=== PATIENT | female | born 1930 | race Caucasian/White ===

== ENCOUNTER 2017-03-20 08:43 | Day surgery (SDC) | payer MEDICARE, OTHER ==
--- NOTE | ~2017-03-20 | EGD ---
EGD REPORT [facility] [address] [id number] NAME: MAK VALDEZ : [birth year] STATUS : REG [facility] PAT#: [id number] AGE: 86 ADM/REG DATE : 03/20/17 MR#: [id number] REPORT SERV DATE: 03/20/17 DICTATED BY: GRACIA CHRISTENSEN DATE: 03/20/17 REPORT STATUS : Draft TRANSCRIBED BY: [facility] DATE: 03/20/17 Endoscopy Center Patient Name: Mak Valdez Date of : 1930 Attending MD: GRACIA CHRISTENSEN MD Procedure Date No Time: 03/20/2017 Procedure: Upper GI endoscopy Indications: Acute post hemorrhagic anemia, Heme positive stool Referring MD: Xu Alaniz Medicines: Monitored Anesthesia Care Complications: No immediate complications. Procedure: Pre-Anesthesia Assessment: - ASA Grade Assessment: III - A patient with severe systemic disease. After obtaining informed consent, the endoscope was passed under direct vision. Throughout the procedure, the patient's blood pressure, pulse, and oxygen saturations were monitored continuously. The GIF [id number] was introduced through the mouth, and advanced to the second part of duodenum. The upper GI endoscopy was accomplished without difficulty. The patient tolerated the procedure well. Findings: The examined esophagus was normal. One non-bleeding gastric ulcer was found in the gastric antrum. The lesion was 8 mm in largest dimension. Biopsies were taken with a cold forceps for histology. The cardia and gastric fundus were normal on retroflexion. The duodenal bulb and 2nd part of the duodenum were normal. Biopsies were taken with a cold forceps for histology. A small diverticulum was found in the second part of the duodenum. Impression: - Normal esophagus. - Gastric ulcer with clean base. Biopsied. - Normal duodenal bulb and 2nd part of the duodenum. Biopsied. Recommendation: - Patient has a contact number available for emergencies. The signs and symptoms of potential delayed complications were discussed with the patient. Return to normal activities tomorrow. Written discharge instructions were provided to the patient. - Regular diet. - Continue present medications. EGD REPORT [address] [address] NAME: MAK VALDEZ : [birth year] STATUS : REG [facility] PAT#: [id number] AGE: 86 ADM/REG DATE : 03/20/17 MR#: [id number] REPORT SERV DATE: 03/20/17 DICTATED BY: GRACIA CHRISTENSEN DATE: 03/20/17 REPORT STATUS : Draft TRANSCRIBED BY: [employer] DATE: 03/20/17 - Use Prilosec (omeprazole) 40 mg PO BID. - Await pathology results. - Return to GI clinic in 1 month. Procedure Code(s): --- Professional --- 56336, Esophagogastroduodenoscopy, flexible, transoral; with biopsy, single or multiple Diagnosis Code(s): --- Professional --- K25.9, Gastric ulcer, unspecified as acute or chronic, without hemorrhage or perforation D62, Acute posthemorrhagic anemia R19.5, Other fecal abnormalities CPT copyright 2013 [employer]. All rights reserved. The codes documented in this report are preliminary and upon substation designer review may be revised to meet current compliance requirements. GRACIA CHRISTENSEN MD 03/20/2017 11:28 AM This report has been signed electronically. Number of Addenda: 0 Note Initiated On: 03/20/2017 11:05 AM Scope Withdrawal Time 0 hours 0 minutes 0 seconds [id number] [id number]
[~2017-03-20 08:43] MED LIST: A&D OINTMENT TOP; ACET500CAP PO; ADVAIR INH; ALAVERT10 MG PO; ALPHAGAN P0.1 % OPH; ASAB PO; B-12 PO; BENTYL10 PO; BRIMONIDINE0.2 % OPH; BUM1 PO; CARTIA XT180 MG/24 PO; CLORAZ DIPOT7.5 MG OR; COZAAR100 MG PO; CYANO1000T PO; DIOV80 PO; DSS PO; ESTRACE1 MG PO; FERRETTS325 MG PO; FERROUS SULF PO; FERROUS SULF325 M1 PO; FERROUS SULFATE PO; FIBER LAXATIVE PO; FIBERCON PO; FLONASE NAS; FLORASTOR250 MG PO; FLORINEF0.1 MG PO; FOSAMAX70 MG PO; HIPREX1 GM PO; IMOD PO; IRON PILL PO; IRON325 MG PO; L20 PO; L40 PO; LACTINEXT PO; LEVOTHROID50 MCG PO; LEVOTHROID88 MCG PO; LEVOTHYROXIN50 MCG PO; LEVOTHYROXIN75 MCG PO; LOP25 PO; LOP50 PO; MELA3 PO; MONUROL PO; MONUROL POWDER 33 GM PO; MULTIVIT/MIN PO; NEUR100 PO; NORCO1 TA1 PO; OCUVITE PO; P10 PO; PCET PO; PRAVACHOL40 MG PO; PREDNISONE2.5 MG PO; PREPARATIO H PR; PREPARATION H PR; PREVALITE4 G1 PO; PREVASTATIN; PRILO PO; PROAMAT5 PO; PROCTO MED HC PR; QUESLITE PO; SENTAB PO; SODBICAR10 PO; SOMATAB PO; STOOL SOFTEN240 MG PO; STOOL SOFTENER OTC PO; SYN.05 PO; SYN075 PO; SYNTHROID 75 MCG; TAZTIA X1 PO; TOBRAMYCIN IO; TRANXENE 3.753.75 MG PO; TRANXENE 7.5 M7.5 MG PO; ULTRAM50 PO; VITAMIN B-121000 MC1 SL; VITAMIN D1000 UNI1 PO; VITAMIN D3 OTC PO; VITAMIN D31000 UNIT PO; XALAT OPH; Z10 PO; ZOFRAN4 PO
[2017-05-21] MEDS ORDERED: PRILOSEC40 MG PO (11:21)
[2017-05-21] MEDS ORDERED: P1 PO (11:22)
[2017-05-21] MEDS ORDERED: [UNRECOGNIZED DRUG - OTHER] PR (11:28)
[2017-05-21] MEDS ORDERED: FIBER PO (12:26)
== END 2017-03-20 23:59 | disposition home health service (06) ==
LOC: DMU 08:43
PROVIDERS: Internal Medicine Gastroenterology
PROC: 0DB68ZX Excision of Stomach, Via Natural or Artificial Opening Endoscopic, Diagnostic (ICD-10-PCS; 2017-03-20)
PROC: 0DB98ZX Excision of Duodenum, Via Natural or Artificial Opening Endoscopic, Diagnostic (ICD-10-PCS; principal; 2017-03-20 10:30)
DX: K29.00 Acute gastritis without bleeding (principal); D63.1 Anemia in chronic kidney disease; D50.9 Iron deficiency anemia, unspecified; I12.9 Hypertensive chronic kidney disease with stage 1 through stage 4 chronic kidney disease, or unspecified chronic kidney disease; K21.9 Gastro-esophageal reflux disease without esophagitis; E78.5 Hyperlipidemia, unspecified; E03.9 Hypothyroidism, unspecified; I95.1 Orthostatic hypotension; G43.909 Migraine, unspecified, not intractable, without status migrainosus; N18.4 Chronic kidney disease, stage 4 (severe); E87.2 Acidosis; E66.9 Obesity, unspecified; N39.0 Urinary tract infection, site not specified; E78.00 Pure hypercholesterolemia, unspecified; M35.3 Polymyalgia rheumatica; M81.0 Age-related osteoporosis without current pathological fracture; M19.90 Unspecified osteoarthritis, unspecified site; Z87.891 Personal history of nicotine dependence; Z79.82 Long term (current) use of aspirin; Z79.899 Other long term (current) drug therapy; Z98.41 Cataract extraction status, right eye; Z88.0 Allergy status to penicillin; Z90.49 Acquired absence of other specified parts of digestive tract; Z98.42 Cataract extraction status, left eye; Z90.710 Acquired absence of both cervix and uterus; Z88.5 Allergy status to narcotic agent; Z88.8 Allergy status to other drugs, medicaments and biological substances; Z86.73 Personal history of transient ischemic attack (TIA), and cerebral infarction without residual deficits; Z98.890 Other specified postprocedural states
CPT/HCPCS: 88305; 88342